=== PATIENT | male | born 1990 | race Asian ===

== ENCOUNTER 2016-11-30 12:37 | Emergency (ER) | payer OTHER ==
[~2016-11-30] VITALS: Ht 177.8 cm; Wt 102.1 kg
[2016-11-30 12:44] VITALS: BP_SYST 126
--- NOTE | 2016-11-30 12:51 | NUR ---
Patient to ER bed 06 to gown for evaluation. Side rails up. Report given to Lata PEREZ
--- NOTE | 2016-11-30 13:00 | NUR ---
Pt AAOx4, able to verbalize needs. Pt states he injured himself on accident with knife on left thumb. Pt c/o 4/10 pain in left thumb. Noted laceration on plantar surface of L thumb, bleeding controlled. No other complaints or injuries per pt or noted.
[2016-11-30] MEDS ORDERED: LIDOCAINE 1% 10 MG/ML, 20 ML MDV IJ ONE (13:15)
[2016-11-30] MEDS ORDERED: DIPH-TET-PERTUS Vaccine 0.5 ML VIAL (ADACEL) IM ONE (13:15)
[2016-11-30] MEDS ORDERED: BACITRACIN 1 GM OINT TP ONE (13:30)
--- NOTE | 2016-11-30 13:45 | NUR ---
Suture tray at bedside. 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 Tolerated well.
--- NOTE | 2016-11-30 14:10 | NUR ---
Pt states no pain currently. Left thumb covered with bacitracin, gauze, and finger splint. Tolerated well.
[2016-11-30 14:28] VITALS: BP_SYST 126
--- NOTE | 2016-11-30 14:28 | NUR ---
Patient given written and verbal discharge instructions and verbalizes understanding. ER MD discussed with patient the results and treatment provided. Patient in stable condition. ID arm band removed. Rx of bacitracin given. Patient educated on pain management and to follow up with PMD. Pain Scale 0/10. Opportunity for questions provided and answered.
== END 2016-11-30 14:28 | disposition home or self-care (01) ==
LOC: SED 12:37
DX: S61.012A Laceration without foreign body of left thumb without damage to nail, initial encounter (principal); R03.0 Elevated blood-pressure reading, without diagnosis of hypertension; Z88.6 Allergy status to analgesic agent; W45.8XXA Other foreign body or object entering through skin, initial encounter; Y93.89 Activity, other specified; Y92.89 Other specified places as the place of occurrence of the external cause; Y99.8 Other external cause status
CPT/HCPCS: 12001; 90471; 90715; 99283; J2001